=== PATIENT | female | born 1985 | race African-American/Black ===

== ENCOUNTER → 2017-10-04 | Outpatient (CLI) | payer MEDICAID ==
[~2017-10-04] MED LIST: ASPI81CH39 OR; ASPI81CH43; GLIP-116 OR; GLIP-204; LISI-275; LISINOPRIL PO; METF-370; METF-372 OR
== END | disposition home or self-care (01) ==
LOC: Rad HDHVI 11:18
PROVIDERS: ATTEND Internal Medicine
DX: I51.7 Cardiomegaly (principal); Q21.1 Atrial septal defect; I10 Essential (primary) hypertension; I47.1 Supraventricular tachycardia; E78.5 Hyperlipidemia, unspecified; E11.9 Type 2 diabetes mellitus without complications; Z79.82 Long term (current) use of aspirin
CPT/HCPCS: 93306